=== PATIENT | female | born 1990 | race Caucasian/White ===

== ENCOUNTER 2018-06-21 09:08 | Emergency (ER) | payer MEDICAID ==
[~2018-06-21] VITALS: Ht 157.5 cm; Wt 82.9 kg
[2018-06-21 09:10] VITALS: BP 126/67; PULSE 83; RESP 19; Ht 157.5 cm; Wt 82.9 kg
[2018-06-21] MEDS ORDERED: PSEU-79 PO (09:35)
[2018-06-21] MEDS ORDERED: AMOX1TAB10 PO (09:35)
[2018-06-21] MEDS ORDERED: PRED20TA PO (09:35)
[2018-06-21] MEDS ORDERED: NAPR-985 PO (09:36)
[2018-06-21] MEDS ORDERED: ACET500C5 PO (09:36)
--- NOTE | 2018-06-21 10:16 | ERD ---
ER Documentation Chief Complaint Chief Complaint HEADACHES AND BODY PAIN X 15 DAYS HPI 27-year-old female presenting with body aches and chest congestion with ear pain. She had a sore throat. She also has had tactile fevers for the last 10 days. Denies vomiting. Has not use medications. Afebrile at today's visit. Denies medical problems. NKDA. Surgical history is cholecystectomy and left ovarian removal. Social history denies ROS All systems reviewed and are negative except as per history of present illness. Medications Home Meds Active Scripts Acetaminophen* (Tylophen*) 500 Mg Capsule, 2 CAP PO Q8H PRN for PAIN AND OR ELEVATED TEMP, #20 CAP Prov:FREDIS SCHWARZ PA-C 06/21/18 Naproxen* (Naprosyn*) 500 Mg Tablet, 500 MG PO BID PRN for PAIN AND/OR INFLAMMATION, #30 TAB Prov:FREDIS SCHWARZ PA-C 06/21/18 Pseudoephedrine Hcl* (Suphedrin*) 30 Mg Tablet, 30 MG PO Q6 PRN for CONGESTION, #30 TAB Prov:FREDIS SCHWARZ PA-C 06/21/18 Amoxicillin/Potassium Clav (Amox-Clav 875-125 mg Tablet) 875-125 mg Tab, 1 TAB PO BID for 7 Days, #14 TAB Prov:FREDIS SCHWARZ PA-C 06/21/18 Prednisone* (Prednisone*) 20 Mg Tab, 40 MG PO DAILY for 4 Days, TAB Prov:FREDIS SCHWARZ PA-C 06/21/18 Allergies Allergies: Coded Allergies: No Known Allergy (Unverified , 06/21/18) PMhx/Soc Medical and Surgical Hx: pt denies Medical Hx, pt denies Surgical Hx Hx Alcohol Use: No Hx Substance Use: No Hx Tobacco Use: No FmHx Family History: No diabetes, No coronary disease, No other Physical Exam Vitals Vital Signs Date Temp Pulse Resp B/P (MAP) Pulse Ox O2 O2 Flow FiO2 Time Delivery Rate 06/21/18 99.4 83 19 126/67 100 09:10 (86) Physical Exam GENERAL: The patient is well-appearing, well-nourished, in no acute distress HEENT: Atraumatic. Conjunctivae are pink. Pupils equal, round, and reactive to light. There is no scleral icterus. Tympanic membranes clear bilaterally. Oropharynx clear. NECK: C-spine is soft and supple. There is no meningismus. There is no cervical lymphadenopathy. CHEST: Clear to auscultation bilaterally. There are no rales, wheezes or rhonchi. HEART: Regular rate and rhythm. No murmurs, clicks, rubs or gallops. Procedures/MDM MDM: 27-year-old female presenting with findings consistent with sinusitis. Patient has progressive symptoms over the last 10 days I will treat with antibiotics. I have low suspicion for meningitis or sepsis. Suspicion for pneumonia. Patient is discharged with antibiotics and supportive medications. Patient is told if symptoms change or worsen to return immediately to the ER. All questions answered at discharge Departure Diagnosis: Primary Impression: Sinusitis Condition: Stable Patient Instructions: Sinusitis, Abx Tx Referrals: [facility] YOU HAVE RECEIVED A MEDICAL SCREENING EXAM AND THE RESULTS INDICATE THAT YOU DO NOT HAVE A CONDITION THAT REQUIRES URGENT TREATMENT IN THE EMERGENCY DEPARTMENT. FURTHER EVALUATION AND TREATMENT OF YOUR CONDITION CAN WAIT UNTIL YOU ARE SEEN I N YOUR DOCTORS OFFICE WITHIN THE NEXT 1-2 DAYS. IT IS YOUR RESPONSIBILITY TO MAKE AN APPOINTMENT FOR FOLOW-UP CARE. IF YOU HAVE A PRIMARY DOCTOR --you should call your primary doctor and schedule an appointment IF YOU DO NOT HAVE A PRIMARY DOCTOR YOU CAN CALL OUR PHYSICIAN REFERRAL HOTLINE AT IF YOU CAN NOT AFFORD TO SEE A PHYSICIAN YOU CAN CHOSE FROM THE FOLLOWING [facility] [address] [facility]. [facility] [address] [facility] [address] [facility] [address] [facility] [facility]. [facility] [address] [facility] [facility]. [address] Additional Instructions: FOLLOW UP WITH YOUR PRIMARY CARE PHYSICIAN TOMORROW.Return to this facility if you are not improving as expected. FREDIS SCHWARZ PA-C Jun 21, 2018 10:16
== END 2018-06-21 10:15 | disposition home or self-care (01) ==
LOC: FTE 09:08
DX: J32.9 Chronic sinusitis, unspecified (principal)
CPT/HCPCS: 99283